=== PATIENT | male | born 1995 | race Caucasian/White ===

== ENCOUNTER 2022-03-04 14:38 | Outpatient (CLI) | payer MEDICAID, SELFPAY ==
[2022-03-04 13:44] LABS: Albumin* 4.3 g/dL (3.3-5.0); Chloride* 106 mmol/L (96-114); Sodium* 137 mmol/L (135-149)
[2022-03-04 13:45] LABS: Potassium* 4.3 mmol/L (3.6-5.1)
[2022-03-04 13:47] LABS: Alanine Aminotransferase* 36 U/L (4-50); Alkaline Phosphatase* 112 U/L (40-150); Aspartate Amino Transferase* 33 U/L (12-35); Bilirubin Direct* 0.3 mg/dL (0.0-0.5); Bilirubin Total* 0.6 mg/dL (0.1-1.5); Blood Urea Nitrogen* 13 mg/dL (5-24); Calcium* 9.1 mg/dL (8.4-10.6); Carbon Dioxide* 26 mmol/L (20-32); Creatinine* 0.7 mg/dL (0.5-1.5); Estimated Glomerular Filt Rate 129 ml/min; Glucose* 101 mg/dL (60-115); Total Protein* 7.2 g/dL (6.0-8.3)
== END 2022-03-04 14:39 | disposition home or self-care (01) ==
PROVIDERS: PCP Physician Assistant Medical; Visit Provider Emergency Medicine
DX: I10 Essential (primary) hypertension (principal); R74.01 Elevation of levels of liver transaminase levels; E66.9 Obesity, unspecified; Z68.42 Body mass index [BMI] 45.0-49.9, adult
CPT/HCPCS: 80048; 80076; 83036; 84443